=== PATIENT | female | born 1960 | race Caucasian/White ===

== ENCOUNTER 2019-05-17 07:23 | Inpatient (IN) | payer BC, OTHER ==
[~2019-05-17 07:23] MED LIST: Buffered Lidocaine 1% SYRIN* 1 ML/SYRINGE INTRADERM ONE; Dexamethasone IV* 4 MG/ML 1 ML (4 MG) IV SLOW PU ONE; Famotidine IV* 10 MG/ML 2 ML (20 mg) IV ONE; Lactated Ringers 1000 ML Bag* 1,000 ML IV SCH; Scopolamine 1.5 mg* PATCH TRANSDERM ONE
[2019-05-17] MEDS ORDERED: Midazolam* 1 MG/ML 2 ML VIAL (2 MG) ONE (08:13)
[2019-05-17] MEDS ORDERED: fentaNYL* 50 MCG/ML 2 ML VIAL (100 MCG VIAL) ONE ×2 (08:13→11:22)
[2019-05-17] MEDS ORDERED: Rocuronium* 10 MG/ML VIAL ONE ×2 (08:14→08:15)
[2019-05-17] MEDS ORDERED: Lidocaine 2% PF * 5 ML VIAL ONE (08:17)
[2019-05-17] MEDS ORDERED: Propofol* 10 MG/ML 20 ML BTL ONE (08:17)
[2019-05-17] MEDS ORDERED: Ketorolac INJ* 30 MG/ML 1 ML VIAL ONE ×2 (08:17→14:01)
[2019-05-17] MEDS ORDERED: Ondansetron INJ* 2 MG/ML VIAL ONE (08:17)
[2019-05-17] MEDS ORDERED: Succinylcholine* 20 MG/ML 10 ML VIAL ONE (08:17)
[2019-05-17] MEDS ORDERED: Heparin VIAL(*) 5000 UNITS/ML VIAL (FIVE THOUSAND) ONE (08:39)
[2019-05-17] MEDS ORDERED: Dexamethasone IV* 4 MG/ML 1 ML (4 MG) ONE (08:39)
[2019-05-17] MEDS ORDERED: Famotidine IV* 10 MG/ML 2 ML (20 mg) ONE (08:40)
[2019-05-17] MEDS ORDERED: Scopolamine 1.5 mg* PATCH ONE (08:40)
[2019-05-17] MEDS ORDERED: Clindamycin 900 MG/D5W BAG(*) 900 MG/50 ML BAG IVPB ONE (08:40)
[2019-05-17] MEDS ORDERED: KETAMINE HCL* 50 MG/ML 10 ML VIAL ONE (09:10)
[2019-05-17] MEDS ORDERED: Bupivacaine 0.5% W/EPI SDV* 10 ML VIAL INJ ONE (09:24)
[2019-05-17] MEDS ORDERED: Bupivacaine 0.25% EPI 200,000* 30 ML SDV ONE ×2 (09:26→12:23)
[2019-05-17] MEDS ORDERED: Methylene Blue 0.5 %* 50 MG/10 ML AMP IV ONE (09:26)
[2019-05-17] MEDS ORDERED: Phenylephrine 40 MCG/ML SYRINGE ONE (10:29)
[2019-05-17] MEDS ORDERED: Phenylephrine 10 MG/ML VIAL* 1 ML VIAL ONE (10:29)
[2019-05-17] MEDS ORDERED: Metoprolol Tartrate IV* 1 MG/ML 5 ML VIAL ONE ×2 (10:42→12:10)
[2019-05-17] MEDS ORDERED: Naloxone* 0.4 MG/ML 1 ML VIAL IV PRN (11:49)
[2019-05-17] MEDS ORDERED: fentaNYL* 50 MCG/ML 2 ML VIAL (100 MCG VIAL) IV PRN (11:49)
[2019-05-17] MEDS ORDERED: Bupivacaine 0.25% W/EPI* 10 ML SDV ONE (12:22)
--- NOTE | 2019-05-17 13:15 | BRIEFOPN ---
Brief Operative/Procedure Note - Operation Details Pre-Op Diagnosis: Morbid Obesity; Umbilical Hernia Post-Op Diagnosis: same Procedures: Laparoscopic Lisa En Y gastric bypass; lysis of adhesions; open repair umbilical hernia Surgeon(s)/Proceduralists: Deborah. Assist: DWAINE Hollingsworth Anesthesia: GET Estimated Blood Loss: 50 ml; Fluids: 1200 ml RL Findings: as above; extensive adhesions; portion of omentum excised after adhesion lysis Specimen(s)/Culture(s) Description: portion of omentum Complications: none
[2019-05-17] MEDS ORDERED: HYDROmorphone INJ* 0.5 MG/0.5 ML SYRINGE IV SLOW PU PRN (13:23)
[2019-05-17] MEDS ORDERED: Acetaminophen ADULT LIQ* 650 MG/20.3 ML UDC PO PRN (13:23)
[2019-05-17] MEDS ORDERED: HYDROmorphone INJ1* 1 MG/ML SYRINGE IV SLOW PU PRN (13:23)
[2019-05-17] MEDS ORDERED: Ondansetron INJ* 2 MG/ML VIAL IV PRN (13:23)
[2019-05-17] MEDS ORDERED: Ketorolac INJ* 30 MG/ML 1 ML VIAL IV SCH (14:00)
[2019-05-17] MEDS ORDERED: Acetaminophen IV 1GM/100ML * 100 ML ONE (14:28)
[2019-05-17] MEDS ORDERED: Metoclopramide IV* 5 MG/ML 2 ML VIAL ONE (14:28)
[2019-05-17] MEDS: Lactated Ringers 1000 ML Bag* 1,000 ML IV SCH (15:45)
[2019-05-17] MEDS ORDERED: Diltiazem IV push/loading dose 5 MG/ML 5 ML vial (25 mg) IV SLOW PU ONE (16:26)
[2019-05-17] MEDS ORDERED: Diltiazem IV VIAL* 125 MG in NS 0.9% 100 ML* 100 ML IVPB SCH (17:00)
[2019-05-17] MEDS: Diltiazem IV BAG* D5W Premix 125 MG/125 ML BAG IV SCH (17:15)
[2019-05-17 18:23] LABS: BUN/Creatinine Ratio 18.1 (8-20); Blood Urea Nitrogen 13 mg/dL (6-24); CO2 Carbon Dioxide 24 mmol/L (22-32); Chloride 106 mmol/L (101-111); EGFR Non-African American 83.5 (>60); Glucose 159 mg/dL (70-100); Phosphorus 4.8 mg/dL (2.5-5.0); Sodium 138 mmol/L (135-145)
[2019-05-17 18:27] LABS: Anion Gap 8 mmol/L (2-11)
[2019-05-17 19:04] LABS: ABS Lymphocytes 0.3 10^3/ul (1.0-4.8); ABS Monocytes 0.1 10^3/ul (0-0.8); ABS Neutrophils 8.6 10^3/ul (1.5-7.7); Hematocrit 40 % (35-47); Hemoglobin 13.6 g/dL (12.0-16.0); Lymphocyte % 3.1 %; Mean Corpuscular HGB Conc 34 g/dL (31-36); Mean Corpuscular Hemoglobin 31 pg (27-31); Mean Corpuscular Volume 90 fL (80-97); Mean Platelet Volume 9.1 fL (7.4-10.4); Platelet Count 181 10^3/uL (150-450); Red Blood Count 4.43 10^6 /uL (3.70-4.87); Red Cell Distribution Width 13 % (10-15)
[2019-05-17 19:17] LABS: Potassium Redraw 4.7 mmol/L (3.5-5.0)
--- NOTE | 2019-05-17 19:53 | CONS ---
CONSULTATION REPORT: DATE OF CONSULT: 05/17/19 CONSULTING PHYSICIAN: Iron Victoria MD. REQUESTING PHYSICIAN: Jabari Cabrera MD. CHIEF COMPLAINT: Post laparoscopic Lisa-en-Y gastric bypass requesting postop management for the Tea b, hypertension. HISTORY OF PRESENT ILLNESS: This is a 58-year-old female with known history of morbid obesity, hypot hyroidism, sleep apnea, tachybrady syndrome, abdominal wall hernia, presented to the [facility] for elective gastric bypass, underwent with Dr. Jabari Cabrera without complication. She did dev elop SVT with atrial flutter/AFib intraoperatively and Medicine Service requested to follow up postop management for her cardiac arrhythmia. The patient was seen on surgical stay, postoperative rate wa s 129 to 140s with a blood pressure maintaining, good systolic pressure is 120/81 and 143/70. She wa s seen and evaluated by me. Her pulse rate was 130 to 138. I did see and evaluated the patient. I did give Cardizem 10 mg IV push on the floor and requested transfer to ICU for Cardizem drip as the p atient is strict n.p.o. PAST MEDICAL HISTORY: 1. Hypertension. 2. Morbid obesity. 3. GERD. 4. Obstructive sleep apnea, not on CPAP. 5. Hyperlipidemia. 6. Hypothyroidism. 7. Paroxysmal atrial fib/flutter. Her cinder snapper is Dr. Devin Paul from [facility]. PAST SURGICAL HISTORY: 1. Ventral hernia. 2. Cervical ventral fusion C4-C7. MEDICATIONS: 1. Diltiazem 60 mg 4 times a day for the past week and her diltiazem 240 mg daily was discontinued a s per the patient. 2. Levoxyl 150 mcg daily. 3. Omeprazole 20 mg daily. FAMILY HISTORY: Mother has history of heart disease, diabetes. Brother with history of diabetes and schizophrenia. Maternal grandmother with breast cancer. SOCIAL HISTORY: She is . Never smoker. Rarely alcohol use. Does not use drugs. REVIEW OF SYSTEMS: Limited as per HPI. Denies any chest pain or shortness of breath. She is compla ining of some abdominal pain postoperatively. PHYSICAL EXAMINATION: Vital Signs: Temperature 97.2, pulse was as high as 138 on the surgical floor , respiratory rate 17, satting 97%, blood pressure 120/81. General: Awake, arousable, in no distress , obese. Head and Neck: Normocephalic, atraumatic. Supple. Lungs: Good air flow, diminished, langford ited to anterolateral due to her body habitus. Abdomen: Soft. Bowel sounds were appreciated. Surg ical wound dry, clean, intact. Extremities: Nonpitting edema. MANAGER PARKING: She is following commands. No deficit. Moving her lower extremities and upper extremities. DIAGNOSTIC STUDIES/LAB DATA: She had the following done preoperatively on 05/10/19. CBC: White count 5.8, hemoglobin 13.5, hematocrit 40, platelets 234. Chemistry: Sodium 142, potassi um 4.8, BUN 13, creatinine 0.7, glucose 89, calcium 9.9. EKG last on record is on 11/18/18, which revealed sinus rhythm. IMPRESSION: This is a 58-year-old female, came in for elective gastric bypass, developed intraop and postoperatively rapid atrial fibrillation. Medicine was consulted for co-management postoperatively , atrial fibrillation, and hypertension. 1. Morbid obesity, status post gastric bypass, Lisa-en-Y. Plan as per surgery in terms of diet and pain control and activity. 2. Paroxysmal atrial fibrillation. Currently, in rapid atrial fibrillation with rate of 138. She i s strict n.p.o. She was given Cardizem 10 mg IV now and then will be transferred to ICU for Cardizem with titration as per nursing protocol for rate control less than 100. Upon reviewing her cardiolog ist's note from outpatient, Dr. Paul, she has a CHADS score 1. Therefore, I would recomm end aspirin when she is taking p.o. Meanwhile, heparin 5000 subcu q.8 for DVT prophylaxis. We will defer long-term anticoagulation to her cinder snapper as an outpatient but if she can tolerate aspirin once cleared by surgery, that would be an option. Meanwhile, only DVT prophylaxis. Once she is taki ng p.o., I will resume back Cardizem 60 p.o. 4 times a day, but for now, she is on the Cardizem drip. 3. Hypothyroidism. Continue her Levoxyl 150 mcg in the morning. 4. Code status. Full code. 5. DVT prophylaxis. Heparin 5000 q.h.s. once she is okay from surgical point of view. [id number]/[facility] #: [id number]
[2019-05-17] MEDS: Famotidine IV* 10 MG/ML 2 ML (20 mg) IV SLOW PU SCH (21:12)
[2019-05-17] MEDS: Heparin VIAL(*) 5000 UNITS/ML VIAL (FIVE THOUSAND) SUBCUT SCH (21:13)
[2019-05-18] MEDS: Ketorolac INJ* 30 MG/ML 1 ML VIAL IV SCH ×4 (00:43→17:34)
[2019-05-18] MEDS: Lactated Ringers 1000 ML Bag* 1,000 ML IV SCH ×2 (00:46→05:56)
[2019-05-18] MEDS: Diltiazem IV BAG* D5W Premix 125 MG/125 ML BAG IV SCH ×2 (02:59→17:19)
[2019-05-18] MEDS: Heparin VIAL(*) 5000 UNITS/ML VIAL (FIVE THOUSAND) SUBCUT SCH ×3 (05:50→21:14)
[2019-05-18] MEDS ORDERED: Levothyroxine INJ* 100 MCG/5 ML VIAL IV SCH (06:00)
--- NOTE | 2019-05-18 09:07 | PN ---
Progress Note - Progress Note Date of Service: 05/18/19 SOAP: Subjective: Minimal pain. No N/V. No CP/SOB. Discussed surgical findings. Objective: Vital Signs Temp 98.6 F 05/18/19 07:17 Pulse 113 05/18/19 07:31 Resp 16 05/18/19 07:31 BP 117/77 05/18/19 07:31 Pulse Ox 96 05/18/19 07:31 gen: nad Abd: incisions c/d/i; no erythema; soft and NT Intake & Output 05/17/19 05/18/19 05/18/19 18:59 06:59 18:59 Intake Total 1200 1816 Output Total 400 700 300 Balance 800 1116 -300 Weight 285 lb 292 lb 12.382 oz Intake: IV Fluids 1200 1681 CLINDAMYCIN 900 MG 50 LR 1150 1681 Medicated IV 135 GEN - Diltiazem/Cardizem 135 Oral 0 Output: Urine 400 700 300 Assessment: POD#1 s/p LRYGB. PAF rate controlled with Cardizem drip. Plan: Transition to po meds. D/w Hospital Med. Hope to txfr to floor later. Adv diet. Ambulate.
--- NOTE | 2019-05-18 09:56 | OP ---
CC: [facility]; Fareed Cano DO * DATE OF OPERATION: 05/17/19 - ROOM #ICU-07 DATE OF : 62 SURGEON: Jabari Cabrera MD. TRAINING ASSOCIATE: DWAINE Woods. ANESTHESIOLOGIST: Dr. Reveles. ANESTHESIA: General endotracheal. PRE-OP DIAGNOSES: Clinically severe obesity, umbilical hernia. POST-OP DIAGNOSES: Clinically severe obesity, umbilical hernia. OPERATIVE PROCEDURE: Laparoscopic Lisa-en-Y gastric bypass, lysis of adhesions , and open repair of umbilical hernia. ESTIMATED BLOOD LOSS: 50 mL. IV FLUIDS: 1.2 L crystalloids. SPECIMENS: Portion of omentum. DRAINS: None. COMPLICATIONS: None. COUNTS: The instrument, needle, and sponge counts were correct. DESCRIPTION OF PROCEDURE: The patient was brought to the operating room and placed on the table supine. Sequential compression devices were placed on both lower extremities. General anesthesia was administered. She was positioned and padded appropriately. She was administered appropriate intravenous antibiotics. She was prepped and draped in the usual sterile fashion and time- out was performed. Local anesthetic was infiltrated into the skin and soft tissue prior to making each incision. Entry to the abdomen was through a left upper quadrant incision accommodating a 12-mm optical trocar. After accessing the peritoneal cavity, carbon dioxide was insufflated to a pressure of 15 mmHg. Under direct visualization, a 5-mm trocar was placed in the left upper quadrant laterally. There were extensive adhesions of omentum to the anterior abdominal wall from the midline extending to the right upper quadrant. LigaSure was used to perform lysis of adhesions. Fat was incarcerated in an umbilical hernia that was approximately 4 cm across. This was reduced. Additional 12-mm trocar was placed in the midline supraumbilically and additional 5-mm trocar placed in the right upper quadrant medially. Additional lysis of adhesions was performed in the right upper quadrant. The right colon was noted to be adherent in this area and this was preserved during the dissection. A 12-mm trocar was then placed in the right upper quadrant, and then under direct visualization, a Em liver retractor was placed percutaneously in the subxiphoid position and used to elevate the left lobe of the liver. The liver did appear normal. The gastric anatomy appeared normal. The cardia and stomach was mobilized away from the left radha of the diaphragm. A perigastric dissection was under-taken on the lesser curvature and entry to the lesser sac was created and then the gastric pouch was fashioned with several fires of the Endo MARTY stapler coombs cartridges with the pouch approximating 15 to 30 mL volume. The omentum was then split down the midline and the transverse colon retracted cephalad. The ligament of Treitz was identified and the jejunum measured out approximately 40 to 50 cm and this loop was then sutured to the left lateral staple line of the gastric pouch with interrupted 2-0 silks. Then, using the Endo MARTY stapler with 30 mm cartridge, a gastro-jejunostomy was created and the common gastroenterotomy was then run close with 3-0 PDS. The loop of jejunum was divided to the left of the anastomosis to complete the anastomosis. Subsequently, the anastomosis was tested with methylene blue dye solution instilled through a 34- Korean orogastric tube and no leak was identified. The enterotomy had been closed over the 34-Korean gastric lavage tube. The Lisa limb was then measured out 75 cm, and at this point, a functional end- to- side jejunojejunostomy was created with a 60 mm coombs cartridge Endo MARTY. Common enterotomy was run closed with 3-0 PDS running it to and fro, tying it to itself. Mesenteric defect was closed with interrupted sutures of 3-0 silk in figure-of- eight fashion. At the conclusion, a portion of the omentum appeared to be completely devascularized and therefore was excised, retrieving with a specimen bag through the umbilical hernia defect after creating a curvilinear infraumbilical incision. The supraumbilical incision, which was at the previous scar, was closed with 0-Vicryl using the Endo Close. The umbilical hernia was cleared circumferentially to healthy fascia and then it was closed with 2 interrupted [id number] sutures with #1 Ethibond. The umbilical stalk was reapproximated to the anterior abdominal wall with 3-0 Vicryl and the skin incisions were all closed with 4-0 Monocryl in subcuticular fashion. The Steri-Strips were applied with dressings. The patient tolerated the procedure well, was extubated uneventfully, transferred to Recovery in a stable condition. [id number]/[facility] #: [id number] [facility] PLAINS HOSPITALFelipa
[2019-05-18] MEDS: Famotidine IV* 10 MG/ML 2 ML (20 mg) IV SLOW PU SCH ×2 (10:09→21:15)
[2019-05-18] MEDS: Diltiazem TAB* 60 MG PO SCH ×5 (10:09→21:15)
[2019-05-18] MEDS: D5W 1/2 NS KCl 20 Meq 1000 ML* 1,000 ML IV SCH ×2 (12:35→16:06)
--- NOTE | 2019-05-18 15:31 | PN ---
Subjective Date of Service: 05/18/19 Interval History: Denies any complaints.No sob.No cp.No palpatations Objective Active Medications: Acetaminophen (Tylenol Adult Liq*) 650 mg PO Q6H PRN PRN Reason: Temp > 101 F Or Mild Pain Diltiazem HCl (Cardizem Tab*) 60 mg PO QID [facility] Last Admin: 05/18/19 12:34 Dose: 60 mg Famotidine (Pepcid Iv*) 20 mg IV SLOW PU BID [facility] Last Admin: 05/18/19 10:09 Dose: 20 mg Heparin Sodium (Porcine) (Heparin Vial(*)) 5,000 units SUBCUT Q8HR [facility] Last Admin: 05/18/19 13:53 Dose: 5,000 units Hydromorphone HCl (Dilaudid Inj*) 0.5 mg IV SLOW PU Q3H PRN PRN Reason: moderately severe pain Last Admin: 05/17/19 18:30 Dose: 0.5 mg Hydromorphone HCl (Dilaudid Inj1s*) 1 mg IV SLOW PU Q3H PRN PRN Reason: more severe pain Potassium Chloride/Dextrose (D5w 1/2 Ns Kcl 20 Meq 1000 Ml*) 1,000 mls @ 125 mls/hr IV PER RATE [facility] Last Admin: 05/18/19 12:35 Dose: 125 mls/hr Diltiazem/Dextrose (Cardizem Iv D5w Bag* Premix) 125 mg in 125 mls @ 5 mls/hr IV Q24H [facility]; Protocol Last Admin: 05/18/19 02:59 Dose: 5 mls/hr Ketorolac Tromethamine (Toradol Inj*) 30 mg IV Q6HR [facility] Stop: 05/19/19 13:59 Last Admin: 05/18/19 12:12 Dose: 30 mg Levothyroxine Sodium (Synthroid Tab*) 150 mcg PO 0600 [facility] Ondansetron HCl (Zofran Inj*) 4 mg IV Q6H PRN PRN Reason: NAUSEA/VOMITING Pharmacy Profile Note (Scopolamine Patch Remove*) 1 note PATCH OFF 0900 [facility] Vital Signs - 8 hr 05/18/19 05/18/19 05/18/19 07:31 07:46 08:00 Temperature Pulse Rate 113 101 Respiratory 16 19 18 Rate Blood Pressure 117/77 98/71 (mmHg) O2 Sat by Pulse 96 97 Oximetry 05/18/19 05/18/19 05/18/19 08:02 08:16 08:30 Temperature Pulse Rate 98 103 95 Respiratory 9 20 16 Rate Blood Pressure 101/72 115/78 (mmHg) O2 Sat by Pulse 90 89 91 Oximetry 05/18/19 05/18/19 05/18/19 08:46 09:00 09:16 Temperature Pulse Rate 89 90 80 Respiratory 16 20 16 Rate Blood Pressure 118/61 113/51 (mmHg) O2 Sat by Pulse 92 91 91 Oximetry 05/18/19 05/18/19 05/18/19 09:31 09:46 10:00 Temperature Pulse Rate 106 89 88 Respiratory 18 17 18 Rate Blood Pressure 96/72 114/71 (mmHg) O2 Sat by Pulse 96 93 94 Oximetry 05/18/19 05/18/19 05/18/19 10:01 10:16 10:31 Temperature Pulse Rate 92 95 104 Respiratory 16 17 21 Rate Blood Pressure 105/77 121/77 133/54 (mmHg) O2 Sat by Pulse 93 95 92 Oximetry 05/18/19 05/18/19 05/18/19 10:46 11:00 11:01 Temperature Pulse Rate 81 88 88 Respiratory 20 20 17 Rate Blood Pressure 112/67 75/62 (mmHg) O2 Sat by Pulse 94 92 94 Oximetry 05/18/19 05/18/19 05/18/19 11:16 11:31 11:46 Temperature Pulse Rate 89 84 101 Respiratory 22 16 16 Rate Blood Pressure 105/65 101/74 117/71 (mmHg) O2 Sat by Pulse 93 88 90 Oximetry 05/18/19 05/18/19 05/18/19 12:00 12:05 12:25 Temperature 98.7 F Pulse Rate 95 Respiratory 26 23 Rate Blood Pressure 113/63 (mmHg) O2 Sat by Pulse 94 Oximetry 05/18/19 05/18/19 05/18/19 13:00 13:01 14:00 Temperature Pulse Rate 97 95 119 Respiratory 17 15 18 Rate Blood Pressure 104/64 91/62 (mmHg) O2 Sat by Pulse 93 94 91 Oximetry 05/18/19 15:00 Temperature Pulse Rate 94 Respiratory 13 Rate Blood Pressure 108/70 (mmHg) O2 Sat by Pulse 91 Oximetry Oxygen Devices in Use Now: None Eyes: No Scleral Icterus Neck: NL Appearance and Movements; NL JVP Respiratory: Symmetrical Chest Expansion and Respiratory Effort, Clear to Auscultation Cardiovascular: - - irregularly irregular Abdominal: NL Sounds; No Tenderness; No Distention Extremities: No Edema, - - edema Result Diagrams: 05/17/19 18:39 05/17/19 18:39 Microbiology and Other Data: Microbiology 05/17/19 18:09 Nasal Screen MRSA (PCR) - Final Nasal Mrsa Not Detected Assess/Plan/Problems-Billing Assessment: - Patient Problems (1) Atrial fibrillation Current Visit: Yes Status: Acute Code(s): I48.91 - UNSPECIFIED ATRIAL FIBRILLATION SNOMED Code(s): 34509010 Comment: paroxysmal a fib long standing history on cardizem cd 240 mg at home and was switched to cardizem 60 mg qid 1 week before A fib likely related to her underlying sleep apnea and obesity as well Currently still in a fib went into a fib in the OR and rate controlled was on cardizem drip overnight transition to po cardizem 60 mg qid and stop drip 2 h after if good on po cardizem,can transition to the floor no sob to suggest PE or other etiology and on DVT propylaxis with Heparin.Discussed this with pt as well Also pt does not want to be on any blood thinner in the nursing home. Currently CHADS score 0.Denies hypertension,diabetes, stroke and scores CHADS Vasc score 1 for being female. 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 on terminal press operator anti coagulation, will continue with dvt propylaxis and consider aspirin when ok from the surgical standpoint pt follows with her director of neighborhood service [facility] in [place] and has had paroxysmal a fib and tachycardia for years (2) Morbid obesity Current Visit: Yes Status: Acute Code(s): E66.01 - MORBID (SEVERE) OBESITY DUE TO EXCESS CALORIES SNOMED Code(s): 301753448 Comment: s/p gastric bypass surgery yesterday with dr cotto doing well (3) Sleep apnea Current Visit: Yes Status: Acute Code(s): G47.30 - SLEEP APNEA, UNSPECIFIED SNOMED Code(s): 22943229 (4) Hypothyroidism Current Visit: Yes Status: Acute Code(s): E03.9 - HYPOTHYROIDISM, UNSPECIFIED SNOMED Code(s): 89617567 Comment: continue levothyroxine (5) DVT prophylaxis Current Visit: Yes Status: Acute Code(s): Z29.9 - ENCOUNTER FOR PROPHYLACTIC MEASURES, UNSPECIFIED SNOMED Code(s): 892481563
[2019-05-19] MEDS: Ketorolac INJ* 30 MG/ML 1 ML VIAL IV SCH ×3 (00:09→12:17)
[2019-05-19] MEDS: D5W 1/2 NS KCl 20 Meq 1000 ML* 1,000 ML IV SCH ×2 (02:27→10:31)
[2019-05-19] MEDS: Heparin VIAL(*) 5000 UNITS/ML VIAL (FIVE THOUSAND) SUBCUT SCH (05:21)
[2019-05-19] MEDS ORDERED: Levothyroxine TAB* 150 MCG TAB PO SCH (06:00)
[2019-05-19 06:54] LABS: ABS Lymphocytes 0.7 10^3/ul (1.0-4.8); ABS Monocytes 0.5 10^3/ul (0-0.8); ABS Neutrophils 6.5 10^3/ul (1.5-7.7); Eosinophil % 0.1 %; Hematocrit 35 % (35-47); Hemoglobin 11.7 g/dL (12.0-16.0); Mean Corpuscular HGB Conc 34 g/dL (31-36); Mean Corpuscular Hemoglobin 31 pg (27-31); Mean Corpuscular Volume 91 fL (80-97); Mean Platelet Volume 9.2 fL (7.4-10.4); Platelet Count 185 10^3/uL (150-450); Red Cell Distribution Width 13 % (10-15); White Blood Count 7.8 10^3/uL (3.5-10.8)
[2019-05-19 07:12] LABS: EGFR African American 96.4 (>60); EGFR Non-African American 79.6 (>60); Potassium 4.1 mmol/L (3.5-5.0)
[2019-05-19 08:03] LABS: TSH (Thyroid Stimulating Horm) 0.12 mcIU/mL (0.34-5.60)
[2019-05-19 08:05] LABS: Free T4 1.99 ng/dL (0.61-1.12)
[2019-05-19] MEDS: Diltiazem TAB* 60 MG PO SCH (08:20)
[2019-05-19] MEDS: Famotidine IV* 10 MG/ML 2 ML (20 mg) IV SLOW PU SCH (08:20)
[2019-05-19] MEDS ORDERED: Diltiazem TAB* 30 MG PO ONE (08:46)
--- NOTE | 2019-05-19 10:21 | PN ---
Subjective Date of Service: 05/19/19 Interval History: Denies any complaints.No sob. HR increases with activity Objective Active Medications: Acetaminophen (Tylenol Adult Liq*) 650 mg PO Q6H PRN PRN Reason: Temp > 101 F Or Mild Pain Diltiazem HCl (Cardizem Tab*) 90 mg PO Q6HR [facility] Famotidine (Pepcid Iv*) 20 mg IV SLOW PU BID [facility] Last Admin: 05/19/19 08:20 Dose: 20 mg Heparin Sodium (Porcine) (Heparin Vial(*)) 5,000 units SUBCUT Q8HR [facility] Last Admin: 05/19/19 05:21 Dose: 5,000 units Hydromorphone HCl (Dilaudid Inj*) 0.5 mg IV SLOW PU Q3H PRN PRN Reason: moderately severe pain Last Admin: 05/17/19 18:30 Dose: 0.5 mg Hydromorphone HCl (Dilaudid Inj1s*) 1 mg IV SLOW PU Q3H PRN PRN Reason: more severe pain Potassium Chloride/Dextrose (D5w 1/2 Ns Kcl 20 Meq 1000 Ml*) 1,000 mls @ 125 mls/hr IV PER RATE [facility] Last Admin: 05/19/19 02:27 Dose: 125 mls/hr Ketorolac Tromethamine (Toradol Inj*) 30 mg IV Q6HR [facility] Stop: 05/19/19 13:59 Last Admin: 05/19/19 06:53 Dose: Not Given Levothyroxine Sodium (Synthroid Tab*) 150 mcg PO 0600 [facility] Last Admin: 05/19/19 05:19 Dose: 150 mcg Ondansetron HCl (Zofran Inj*) 4 mg IV Q6H PRN PRN Reason: NAUSEA/VOMITING Pharmacy Profile Note (Scopolamine Patch Remove*) 1 note PATCH OFF 0900 [facility] Vital Signs - 8 hr 05/19/19 05/19/19 05/19/19 03:07 08:00 08:09 Temperature 97.5 F 98.4 F Pulse Rate 100 111 Respiratory 16 18 18 Rate Blood Pressure 116/66 126/75 (mmHg) O2 Sat by Pulse 96 97 97 Oximetry Oxygen Devices in Use Now: None Eyes: No Scleral Icterus Ears/Nose/Mouth/Throat: NL Teeth, Lips, Gums Neck: NL Appearance and Movements; NL JVP Respiratory: Symmetrical Chest Expansion and Respiratory Effort Cardiovascular: NL Sounds; No Murmurs; No JVD, - - irregularly irregular Abdominal: NL Sounds; No Tenderness; No Distention Extremities: No Edema Neurological: Alert and Oriented x 3 Result Diagrams: 05/19/19 06:30 05/19/19 06:30 Microbiology and Other Data: Microbiology 05/17/19 18:09 Nasal Screen MRSA (PCR) - Final Nasal Mrsa Not Detected Assess/Plan/Problems-Billing Assessment: - Patient Problems (1) Atrial fibrillation Current Visit: Yes Status: Acute Code(s): I48.91 - UNSPECIFIED ATRIAL FIBRILLATION SNOMED Code(s): 41213854 Comment: paroxysmal a fib long standing history on cardizem cd 240 mg at home and was switched to cardizem 60 mg qid 1 week before A fib likely related to her underlying sleep apnea and obesity as well Currently still in a fib went into a fib in the OR and rate controlled was on cardizem drip initially in the icu transitioned to po cardizem 60 mg qid and drip stopped yesterday transferred to floor HR still elevated.Pt hesitant to take any new meds. 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 Currently CHADS score 0.Denies hypertension,diabetes, stroke and scores CHADS Vasc score 1 for being female. In light of this and her surgery being recent and her reluctance to be on fci anti coagulation, will continue with dvt propylaxis and consider aspirin when ok from the surgical standpoint pt follows with her bottle washer in [place] and has had paroxysmal a fib and tachycardia for years (2) Morbid obesity Current Visit: Yes Status: Acute Code(s): E66.01 - MORBID (SEVERE) OBESITY DUE TO EXCESS CALORIES SNOMED Code(s): 096511802 Comment: s/p gastric bypass surgery yesterday with dr cotto doing well (3) Sleep apnea Current Visit: Yes Status: Acute Code(s): G47.30 - SLEEP APNEA, UNSPECIFIED SNOMED Code(s): 11367743 (4) Hypothyroidism Current Visit: Yes Status: Acute Code(s): E03.9 - HYPOTHYROIDISM, UNSPECIFIED SNOMED Code(s): 42618984 Comment: continue levothyroxine (5) DVT prophylaxis Current Visit: Yes Status: Acute Code(s): Z29.9 - ENCOUNTER FOR PROPHYLACTIC MEASURES, UNSPECIFIED SNOMED Code(s): 631478134
[2019-05-19] MEDS ORDERED: Diltiazem TAB* 30 MG PO SCH (12:00)
[2019-05-19 12:55] VITALS: BP 144/78
--- NOTE | 2019-05-19 13:04 | PN ---
Progress Note - Progress Note Date of Service: 05/19/19 SOAP: Subjective: []NAD, No CP, No SOB, + Flatus, tolerating liquids @ 120cc/hr Objective: [] Temp Pulse Resp BP Pulse Ox 98.4 F 111 18 126/75 97 05/19/19 08:09 05/19/19 08:09 05/19/19 08:09 05/19/19 08:09 05/19/19 08:09 Intake & Output 05/18/19 05/19/19 05/19/19 22:59 06:59 14:59 Intake Total 270 1433 Output Total 100 1000 Balance 170 433 Laboratory Last Values WBC 7.8 10^3/uL (3.5-10.8) 05/19/19 06:30 RBC 3.80 10^6 /uL (3.70-4.87) 05/19/19 06:30 Hgb 11.7 g/dL (12.0-16.0) L 05/19/19 06:30 Hct 35 % (35-47) 05/19/19 06:30 MCV 91 fL (80-97) 05/19/19 06:30 MCH 31 pg (27-31) 05/19/19 06:30 MCHC 34 g/dL (31-36) 05/19/19 06:30 RDW 13 % (10-15) 05/19/19 06:30 Plt Count 185 10^3/uL (150-450) 05/19/19 06:30 MPV 9.2 fL (7.4-10.4) 05/19/19 06:30 Neut % (Auto) 84.1 % 05/19/19 06:30 Lymph % (Auto) 9.0 % 05/19/19 06:30 Josephine % (Auto) 6.3 % 05/19/19 06:30 Eos % (Auto) 0.1 % 05/19/19 06:30 Baso % (Auto) 0.5 % 05/19/19 06:30 Absolute Neuts (auto) 6.5 10^3/ul (1.5-7.7) 05/19/19 06:30 Absolute Lymphs (auto) 0.7 10^3/ul (1.0-4.8) L 05/19/19 06:30 Absolute Monos (auto) 0.5 10^3/ul (0-0.8) 05/19/19 06:30 Absolute Eos (auto) 0.0 10^3/ul (0-0.6) 05/19/19 06:30 Absolute Basos (auto) 0.0 10^3/ul (0-0.2) 05/19/19 06:30 Absolute Nucleated RBC 0.0 10^3/ul 05/19/19 06:30 Nucleated RBC % 0.0 05/19/19 06:30 Sodium 141 mmol/L (135-145) 05/19/19 06:30 Potassium 4.1 mmol/L (3.5-5.0) 05/19/19 06:30 Chloride 110 mmol/L (101-111) 05/19/19 06:30 Carbon Dioxide 27 mmol/L (22-32) 05/19/19 06:30 Anion Gap 4 mmol/L (2-11) 05/19/19 06:30 BUN 12 mg/dL (6-24) 05/19/19 06:30 Creatinine 0.75 mg/dL (0.51-0.95) 05/19/19 06:30 Est GFR ( Amer) 96.4 (>60) 05/19/19 06:30 Est GFR (Non-Af Amer) 79.6 (>60) 05/19/19 06:30 BUN/Creatinine Ratio 16.0 (8-20) 05/19/19 06:30 Glucose 115 mg/dL (70-100) H 05/19/19 06:30 Calcium 9.0 mg/dL (8.6-10.3) 05/19/19 06:30 Phosphorus 4.8 mg/dL (2.5-5.0) 05/17/19 17:57 Magnesium 2.0 mg/dL (1.9-2.7) 05/17/19 18:39 TSH 0.12 mcIU/mL (0.34-5.60) L 05/19/19 06:30 Free T4 1.99 ng/dL (0.61-1.12) H 05/19/19 06:30 Chest: CTA B/L CVS: RRR Abd: Obese, soft, ND, incisional tenderness, mild eccymosis at umbilical site, steris in place, no sign of infection, + BS's Extemeties: calves soft,NT Assessment: POD 2 S/P lap gastric bypass and umbilical heria repair, doing well [] Plan: D/C home today per Dr Cabrera, Medication doses on diltizem and synthroid adjusted per hospitalist instructions see D/C summary for specific details
--- NOTE | 2019-05-19 16:12 | DS ---
CC: Dr. Cano; Dr. Paul * DISCHARGE SUMMARY: DATE OF ADMISSION: 05/17/19 DATE OF DISCHARGE: 05/19/19 ATTENDING SURGEON: Dr. Jabari Cabrera.* (DICTATED BY CYRUS HURLEY NP) HOSPITAL COURSE: Please refer to admission history and physical for admission details. The patient was taken to the operating room on 05/17/19 and underwent laparoscopic Lisa-en-Y gastric bypass and repair of umbilical hernia. Intraoperatively, she developed supraventricular tachycardia with atrial flutter , atrial fibrillation and the hospitalist service was consulted to follow up for postoperative management for her arrhythmia. She was transferred to the intensive care unit postoperatively and placed on a Cardizem drip. She was then transitioned to oral Cardizem (diltiazem) once she is started on the bariatric clear liquid diet. Her heart rate stabilized and she denied any chest pain, shortness of breath, or palpitations. She otherwise had an uneventful postoperative course and as of the morning of discharge, she was tolerating 120 mL of clear liquids per hour; her pain was well controlled. She was voiding in adequate amounts and ambulating in the halls and using her Inspiron. PHYSICAL EXAMINATION: Vital Signs: Stable, blood pressure 126/75, she remains in atrial fibrillation with a rate between 97 and 110, respiratory rate 16, O2 saturation on room air 97%, and she is afebrile. Lungs: Breath sounds bilaterally clear and equal. Heart: Irregularly irregular rhythm. Abdomen: Active bowel sounds. Laparoscopic incision site is intact with Steri-Strips. Mild ecchymosis around the umbilical incision. No active bleeding or drainage. Bowel sounds are present and the abdomen is soft with appropriate incisional tenderness. Extremities: Nontender calves. IMPRESSION: Postoperative day 2 status post laparoscopic Lisa-en-Y gastric bypass with repair of umbilical hernia; doing well. CONDITION: Stable for discharge. PLAN: Discharge home today at the recommendation of the hospitalist service. Her usual diltiazem has been adjusted to 90 mg q.i.d. and her Synthroid has been decreased to 125 mcg p.o. daily. She has a followup appointment at [facility] on 05/26/[address] Cabrera and also has a followup with her informix developer, Dr. Paul and I encouraged her to make a followup with her primary care provider Dr. Cano. She will follow the prescribed bariatric dietary guidelines. She knows to call the service with any concerns. She will use adult strength liquid Tylenol for pain management as needed. CYRUS HURLEY, NAYELI [id number]/[facility] #: [id number] JANINA
[2019-05-20] MEDS ORDERED: Levothyroxine TAB* 125 MCG TAB PO SCH (06:00)
[2019-05-20] MEDS ORDERED: Scopolamine PATCH Remove* 1 NOTE MISC PATCH OFF SCH (09:00)
== END 2019-05-19 13:30 | disposition home or self-care (01) | DRG 403 ==
LOC: AA 07:23 → SSU 15:33 → ICU 17:11 → SSU 05-18 16:04
PROVIDERS: ADMIT Surgery; ATTEND Surgery
PROC: 0DNU4ZZ Release Omentum, Percutaneous Endoscopic Approach (ICD-10-PCS; 2019-05-17)
PROC: 0D164ZA Bypass Stomach to Jejunum, Percutaneous Endoscopic Approach (ICD-10-PCS; principal; 2019-05-17 09:00)
DX: E66.01 Morbid (severe) obesity due to excess calories (principal); I48.92 Unspecified atrial flutter; I47.1 Supraventricular tachycardia; G47.33 Obstructive sleep apnea (adult) (pediatric); K21.9 Gastro-esophageal reflux disease without esophagitis; E03.9 Hypothyroidism, unspecified; I48.0 Paroxysmal atrial fibrillation; L40.9 Psoriasis, unspecified; K44.9 Diaphragmatic hernia without obstruction or gangrene; K42.9 Umbilical hernia without obstruction or gangrene; J30.1 Allergic rhinitis due to pollen; I49.5 Sick sinus syndrome; K66.0 Peritoneal adhesions (postprocedural) (postinfection); D86.9 Sarcoidosis, unspecified; Z68.43 Body mass index [BMI] 50.0-59.9, adult; Z88.6 Allergy status to analgesic agent; Z88.8 Allergy status to other drugs, medicaments and biological substances; Z98.51 Tubal ligation status; Z90.49 Acquired absence of other specified parts of digestive tract; Z98.1 Arthrodesis status; Z80.3 Family history of malignant neoplasm of breast; Z80.8 Family history of malignant neoplasm of other organs or systems; Z83.3 Family history of diabetes mellitus; Z82.49 Family history of ischemic heart disease and other diseases of the circulatory system; Z83.49 Family history of other endocrine, nutritional and metabolic diseases; Z81.8 Family history of other mental and behavioral disorders
CPT/HCPCS: 36415; 80048; 83735; 84100; 84439; 84443; 85025; 87641; 88305; 93005; A9270-GY; C1776; J0330; J1100; J1170; J1644; J1885; J2250; J2405; J2704; J2765; J3010; J3490